=== PATIENT | male | born 1985 | race Caucasian/White ===

== ENCOUNTER 2019-11-15 05:02 | Emergency (ER) | payer OTHER ==
[~2019-11-15] VITALS: Ht 172.7 cm; Wt 99.8 kg
[2019-11-15] MEDS ORDERED: WELLBUTRIN XL300 MG PO (05:10)
[2019-11-15] MEDS ORDERED: PRILOSEC OTC20 MG PO (05:10)
[2019-11-15 05:40] LABS: ABSOLUTE BASOPHILS 0.1 thou/uL (0.0-0.2); ABSOLUTE EOSINOPHILS 0.3 thou/uL (0.0-0.7); ABSOLUTE LYMPHOCYTES 3.9 thou/uL (0.8-5.3); ABSOLUTE MONOCYTES 0.9 thou/uL (0.0-1.2); ABSOLUTE NEUTROPHILS 7.3 thou/uL (1.6-8.1); BASOPHILS 0.8 %; EOSINOPHILS 2.1 %; HEMATOCRIT 49.9 % (42.0-52.0); HEMOGLOBIN 17.8 gm/dL (14.0-18.0); LYMPHOCYTES 31.4 %; MCH 29.5 pg (26.0-34.0); MCHC 35.7 g/dL (28.0-37.0); MCV 82.7 fL (80.0-100.0); MONOCYTES 7.4 %; MPV 8.9 fl. (7.2-11.1); NUCLEATED RBCS 0 /100WBC; PLATELET COUNT* 258 thou/uL (150-400); POLYS 58.3 %; RBC 6.03 mil/uL (4.50-6.00); RDW-CV 13.2 % (10.5-14.5); WBC 12.5 thou/uL (4.0-11.0)
[2019-11-15 05:42] LABS: CREATININE 1.3 mg/dL (0.6-1.3)
[2019-11-15 05:47] LABS: ALBUMIN 4.4 g/dL (3.4-5.0); TOTAL BILIRUBIN 0.5 mg/dL (<0.1-1.0); TOTAL PROTEIN 7.9 g/dL (6.4-8.2)
[2019-11-15 05:48] LABS: POTASSIUM 3.4 mmol/L (3.5-5.1)
[2019-11-15 06:44] VITALS: BP 156/99
== END 2019-11-15 06:45 | disposition home or self-care (01) ==
LOC: M.ERS 05:02
PROVIDERS: Family Medicine
DX: K59.00 Constipation, unspecified (principal)